=== PATIENT | male | born 1970 | race Caucasian/White ===

== ENCOUNTER 2019-05-08 23:40 | Inpatient (IN) | payer BC, OTHER ==
[~2019-05-08] VITALS: Ht 180.3 cm; Wt 89.3 kg
[2019-05-08] MEDS ORDERED: ONDANSETRON HCL 4 MG/2 ML VIAL ONE (23:55)
[2019-05-08] MEDS ORDERED: HYDROmorphone HCL 2 MG/ML VL ONE (23:55)
[2019-05-09] MEDS ORDERED: metroNIDAZOLE 500MG/100ML 100 ML IV ONE ×2
[2019-05-09] MEDS ORDERED: ONDANSETRON HCL 4 MG/2 ML VIAL IV ONE ×2 (00:05→02:45)
[2019-05-09] MEDS ORDERED: HYDROmorphone HCL 2 MG/ML VL IV ONE ×3 (00:05→02:45)
[2019-05-09] MEDS ORDERED: metroNIDAZOLE 500MG/100ML 200 ML IV ONE (01:35)
[2019-05-09] MEDS ORDERED: PIPERACILLIN-TAZOB 3.375GM 100 ML IV ONE ×2 (01:35→02:45)
[2019-05-09] MEDS ORDERED: SODIUM CHLORIDE 0.9% 1,000 ML IV ONE (02:45)
[2019-05-09 03:20] LABS: Basophils # (auto) 0.1 10 ^3/uL (0-0.2); Basophils % (auto) 0.6 % (0.0-2.0); Eosinophils # (auto) 0 10 ^3/uL (0-0.8); Hematocrit 44.2 % (41.0-53.0); Lymphocytes # (auto) 0.5 10 ^3/uL (0.4-5.4); Lymphocytes % (auto) 2.5 % (10.0-50.0); Mean Corpuscular Hemoglobin 32.1 pg (28.0-32.0); Mean Corpuscular Hgb Conc. 33.9 g/dL (32.0-36.0); Mean Corpuscular Volume 94.6 fL (80.0-100.0); Monocytes # (auto) 0.7 10 ^3/uL (0-1.3); Monocytes % (auto) 3.6 % (0.0-12.0); Neutrophils # (auto) 19.3 10 ^3/uL (1.6-8.6); Neutrophils % (auto) 93.3 % (37.0-80.0); Platelet Count (auto) 299 10^3/uL (140-450); Red Blood Cells 4.67 10^6/uL (4.5-5.90); Red Cell Distribution Width 13.7 % (11.8-14.3); White Blood Cell 20.7 10^3/uL (4.4-10.8)
[2019-05-09 03:35] LABS: INR 0.97 (0.9-1.15); Partial Thromboplastin Time 26.8 sec (23.64-32.05)
[2019-05-09 03:39] LABS: Albumin 3.6 g/dL (3.4-5.0); BUN/Creatinine Ratio 19.4; Potassium 3.7 mmol/L (3.5-5.1)
[2019-05-09 03:42] LABS: Bilirubin, Total 0.8 mg/dL (0.2-1.0); Total Protein 7.4 g/dL (6.4-8.2)
[2019-05-09] MEDS: SODIUM CHLORIDE 0.9% 1,000 ML IV SCH ×2 (04:20→16:20)
[2019-05-09 05:54] VITALS: BP 155/90
[2019-05-09] MEDS: metroNIDAZOLE 500MG/100ML 100 ML IV SCH ×3 (06:00→22:06)
[2019-05-09] MEDS: MORPHINE SULFATE 4 MG/ML SYR/VIAL IV PRN ×4 (06:15→20:18)
--- NOTE | 2019-05-09 08:05 | NUR ---
Opening Shift Note Assumed care of patient, awake and alert. No S/S of distress/SOB or pain. Instructed on POC and to call for assist PRN, will continue to monitor for changes Q1hr and PRN. NPO status maintained for possible surgical procedure today.
[2019-05-09] MEDS: PANTOPRAZOLE 40 MG/10 ML VIAL INJ IV SCH (09:06)
[2019-05-09] MEDS: cefTRIAXone 1GM/50ML D5W 50 ML IV SCH (09:06)
[2019-05-09 09:11] VITALS: BP 139/84
--- NOTE | 2019-05-09 10:15 | NUR ---
Pain Patient complained of pain to lower abdomen. Patient to sign consent forms before pain medication.
[2019-05-09] MEDS ORDERED: fentaNYL CITRATE 100 MCG/2 ML VL ONE (10:30)
[2019-05-09] MEDS ORDERED: SUCCINYLCHOLINE CHLORIDE 20 MG/ML 10ML VIAL IV ONE (10:30)
[2019-05-09] MEDS ORDERED: MIDAZOLAM HCL 1MG/1ML-2 ML VIAL ONE (10:30)
[2019-05-09] MEDS ORDERED: HYDROmorphone HCL 2 MG/ML VL ONE (10:30)
[2019-05-09] MEDS ORDERED: ROCURONIUM 10MG/ML 10ML VIAL IV ONE (10:30)
[2019-05-09] MEDS ORDERED: POVIDONE IODINE 10 % TOPICAL OINT 30GM TOP ONE (10:30)
[2019-05-09] MEDS ORDERED: ONDANSETRON HCL 4 MG/2 ML VIAL ONE (10:31)
[2019-05-09] MEDS ORDERED: PROPOFOL 10 MG/ML 20 ML IV ONE (10:31)
[2019-05-09] MEDS ORDERED: ETOMIDATE (2MG/ML) 20ML VIAL IV ONE (10:31)
--- NOTE | 2019-05-09 10:45 | NUR ---
Patient signed consent forms signed for laparoscopic possible open appendectomy.
--- NOTE | 2019-05-09 10:48 | NUR ---
Morphine 2mg administered for pain after surgical consent forms signed.
[2019-05-09] MEDS: ONDANSETRON HCL 4 MG/2 ML VIAL IV PRN ×3 (10:53→20:18)
--- NOTE | 2019-05-09 11:40 | NUR ---
Off Unit Patient off unit for surgical procedure.
[2019-05-09] MEDS ORDERED: METOCLOPRAMIDE HCL 5MG/ml INJ 2ml VIAL IV PRN (12:00)
[2019-05-09] MEDS ORDERED: KETOROLAC TROMETH 15 mg/ml 1ML VL IV ONE (12:00)
[2019-05-09] MEDS ORDERED: fentaNYL CITRATE 100 MCG/2 ML VL IV PRN (12:00)
[2019-05-09] MEDS ORDERED: HYDROmorphone HCL 2 MG/ML VL IV PRN (12:00)
[2019-05-09] MEDS ORDERED: MORPHINE SULFATE 4 MG/ML SYR/VIAL IV PRN (12:00)
[2019-05-09] MEDS ORDERED: ceFAZolin 1GM/50ML 50 ML IV ONE (12:06)
[2019-05-09] MEDS ORDERED: KETOROLAC TROMETH 60MG/2ML VIAL ONE (12:10)
[2019-05-09] MEDS ORDERED: NEOSTIGMINE 1 MG/ML INJ (10mg/10ML VIAL) ONE (12:10)
[2019-05-09] MEDS ORDERED: GLYCOPYRROLATE 0.2 MG/ML 1ML VIAL ONE (12:10)
--- NOTE | 2019-05-09 14:10 | NUR ---
On Unit Patient returned to unit after having procedure done. Patient is awake and alert to place, self, time and situation. Opsite soiled with Betadine otherwise dry and intact. ANTONELLA drain insitu with minimal serosanguineous drainage. Call light placed within reach, bed alarm on for safety. Urinal given at bedside and patient encouraged to call for assistance.
--- NOTE | 2019-05-09 14:15 | NUR ---
Password Patient refused to set up password at this time. Explained that we cannot provide information unless he has password set up. Patient will call and update spouse.
[2019-05-09 14:48] VITALS: BP 146/86
[2019-05-09 17:00] VITALS: BP 149/89
[2019-05-09 22:25] VITALS: BP 149/94
[2019-05-10] MEDS: ONDANSETRON HCL 4 MG/2 ML VIAL IV PRN ×4 (01:43→22:49)
[2019-05-10] MEDS: MORPHINE SULFATE 4 MG/ML SYR/VIAL IV PRN ×3 (01:45→10:12)
[2019-05-10] MEDS: SODIUM CHLORIDE 0.9% 1,000 ML IV SCH ×2 (05:06→14:18)
[2019-05-10 05:09] VITALS: BP 136/84
[2019-05-10] MEDS: metroNIDAZOLE 500MG/100ML 100 ML IV SCH ×3 (05:38→21:30)
[2019-05-10 06:04] LABS: Albumin 2.6 g/dL (3.4-5.0); BUN/Creatinine Ratio 14.3; Calcium 8.4 mg/dL (8.5-10.1); Potassium 3.5 mmol/L (3.5-5.1)
[2019-05-10 06:05] LABS: Basophils # (auto) 0 10 ^3/uL (0-0.2); Basophils % (auto) 0.1 % (0.0-2.0); Eosinophils # (auto) 0 10 ^3/uL (0-0.8); Eosinophils % (auto) 0.2 % (0.0-7.0); Hematocrit 38.3 % (41.0-53.0); Hemoglobin 12.8 g/dL (13.5-17.5); Lymphocytes # (auto) 1.2 10 ^3/uL (0.4-5.4); Lymphocytes % (auto) 9.9 % (10.0-50.0); Mean Corpuscular Hemoglobin 31.9 pg (28.0-32.0); Mean Corpuscular Hgb Conc. 33.4 g/dL (32.0-36.0); Mean Corpuscular Volume 95.3 fL (80.0-100.0); Monocytes # (auto) 0.6 10 ^3/uL (0-1.3); Monocytes % (auto) 4.7 % (0.0-12.0); Neutrophils # (auto) 10.4 10 ^3/uL (1.6-8.6); Neutrophils % (auto) 85.1 % (37.0-80.0); Platelet Count (auto) 234 10^3/uL (140-450); Red Blood Cells 4.02 10^6/uL (4.5-5.90); Red Cell Distribution Width 13.9 % (11.8-14.3); White Blood Cell 12.2 10^3/uL (4.4-10.8)
[2019-05-10 06:07] LABS: Bilirubin, Total 0.8 mg/dL (0.2-1.0); Total Protein 6.2 g/dL (6.4-8.2)
--- NOTE | 2019-05-10 07:10 | NUR ---
Opening Shift Note: Assumed care of patient, patient asleep at this time. No S/S of distress/SOB or pain. Bed in lowest locked position, side rails up x 2, call light within reach. Patient will be instructed on POC and to call for assist PRN, will continue to monitor for changes Q1hr and PRN.
[2019-05-10 09:04] VITALS: BP 131/92
[2019-05-10] MEDS: PANTOPRAZOLE 40 MG/10 ML VIAL INJ IV SCH (09:21)
[2019-05-10] MEDS: cefTRIAXone 1GM/50ML D5W 50 ML IV SCH (09:21)
--- NOTE | 2019-05-10 10:12 | NUR ---
PAIN Patient states pain level 9/10. Appropriate medications given.
--- NOTE | 2019-05-10 10:42 | NUR ---
PAIN REASSESSMENT Patient sleeping at this time. No S/S of pain noted. Will continue to monitor.
[2019-05-10 13:00] VITALS: BP 135/88
[2019-05-10] MEDS: HYDROcodone-ACET 10/325MG TAB PO PRN ×2 (16:33→22:49)
--- NOTE | 2019-05-10 16:33 | NUR ---
PAIN Patient states pain 07/22. Dr. Veliz contacted for appropriate pain medications. New orders received, read back and verified.
[2019-05-10 16:55] VITALS: BP 154/87
--- NOTE | 2019-05-10 17:34 | NUR ---
PAIN REASSESSMENT Patient states pain level 2/10. Per patient " I am comfortable." Will continue to monitor.
--- NOTE | 2019-05-10 18:00 | NUR ---
ANTONELLA DRAIN 45 mLs emptied from drain.
--- NOTE | 2019-05-10 19:04 | NUR ---
Closing note: Patient resting. No S/S of distress, SOB or pain at this time. Care endorsed to NOC RN.
--- NOTE | 2019-05-10 19:30 | NUR ---
OPENING NOTE REPORT RECEIVED FROM DAYSHIFT RN PATIENT IS A/OX4 RESTING COMFORTABLY IN BED. PATIENT DENIES ANY PAIN AT THIS TIME. INCISION SITES TO MEDIAL ABDOMEN WITH ANTONELLA DRAIN TO LEFT LOWER ABDOMEN. ABD BINDER IN PLACE FOR COMFORT. PATIENT ABLE TO APPROPRIATELY DEMONSTRATE INCENTIVE SPIROMETER USE. POC DISCUSSED AND ALL QUESTIONS ANSWERED, WILL MONITOR Q1H PRN THROUGHOUT SHIFT.
[2019-05-10 21:00] VITALS: BP 148/85
--- NOTE | 2019-05-10 21:46 | NUR ---
REPORT ENDORSED TO TARYN BARKLEY TO ASSUME CARE OF PATIENT PATIENT SLEEPING COMFORTABLY, NO S/S OF DISTRESS NOTED. CALL LIGHT WITHIN REACH.
[2019-05-11] MEDS: SODIUM CHLORIDE 0.9% 1,000 ML IV SCH ×2 (02:04→11:01)
[2019-05-11 04:30] VITALS: BP 144/93
[2019-05-11 05:17] LABS: Basophils # (auto) 0 10 ^3/uL (0-0.2); Basophils % (auto) 0.2 % (0.0-2.0); Eosinophils # (auto) 0 10 ^3/uL (0-0.8); Eosinophils % (auto) 0.2 % (0.0-7.0); Hematocrit 38.2 % (41.0-53.0); Hemoglobin 12.9 g/dL (13.5-17.5); Lymphocytes # (auto) 0.8 10 ^3/uL (0.4-5.4); Lymphocytes % (auto) 7.3 % (10.0-50.0); Mean Corpuscular Hemoglobin 32.2 pg (28.0-32.0); Mean Corpuscular Hgb Conc. 33.8 g/dL (32.0-36.0); Mean Corpuscular Volume 95.5 fL (80.0-100.0); Monocytes # (auto) 0.5 10 ^3/uL (0-1.3); Monocytes % (auto) 4.2 % (0.0-12.0); Neutrophils # (auto) 9.6 10 ^3/uL (1.6-8.6); Neutrophils % (auto) 88.1 % (37.0-80.0); Platelet Count (auto) 242 10^3/uL (140-450); Red Blood Cells 3.99 10^6/uL (4.5-5.90); Red Cell Distribution Width 13.5 % (11.8-14.3); White Blood Cell 10.9 10^3/uL (4.4-10.8)
[2019-05-11] MEDS: HYDROcodone-ACET 10/325MG TAB PO PRN ×2 (05:42→12:01)
[2019-05-11] MEDS: ONDANSETRON HCL 4 MG/2 ML VIAL IV PRN (05:42)
[2019-05-11] MEDS: metroNIDAZOLE 500MG/100ML 100 ML IV SCH ×2 (06:07→13:49)
--- NOTE | 2019-05-11 07:20 | NUR ---
Opening Shift Note: Assumed care of patient. Patient asleep at this time. No S/S of distress/SOB or pain. Bed in lowest locked position, side rails up x 2, call light within reach. Patient will instructed on POC and to call for assist PRN, will continue to monitor for changes Q1hr and PRN.
[2019-05-11 09:00] VITALS: BP 116/90
[2019-05-11] MEDS: cefTRIAXone 1GM/50ML D5W 50 ML IV SCH (09:22)
[2019-05-11] MEDS: PANTOPRAZOLE 40 MG/10 ML VIAL INJ IV SCH (09:22)
--- NOTE | 2019-05-11 10:58 | NUR ---
DR CAMPOS: Dr. Veliz at bedside. Discussed POC with patient, patient verbally agreed.
--- NOTE | 2019-05-11 12:01 | NUR ---
PAIN Patient states headache, 07/22. Appropriate medication given. Will continue to monitor.
--- NOTE | 2019-05-11 12:10 | NUR ---
Dr. Smith paged regarding pending D/C. Per Dr. Smith "Patient is good to go home, follow up with me in two weeks."
[2019-05-11 12:22] VITALS: BP 116/90
[2019-05-11 13:00] VITALS: BP 133/96
--- NOTE | 2019-05-11 13:01 | NUR ---
PAIN REASSESSMENT Patient states pain level 2/10. Per patient "I am comfortable." Will continue to monitor.
== END 2019-05-11 14:58 | disposition home or self-care (01) | DRG 854 ==
LOC: EDBD 23:40 → ER 23:45 → WEST WING 23:46
PROVIDERS: ADMIT Nurse Practitioner; ATTEND Family Medicine
PROC: 0DTJ4ZZ Resection of Appendix, Percutaneous Endoscopic Approach (ICD-10-PCS; principal; 2019-05-09 12:21)
DX: A41.9 Sepsis, unspecified organism (principal); K35.80 Unspecified acute appendicitis; E86.0 Dehydration; F12.90 Cannabis use, unspecified, uncomplicated; F41.9 Anxiety disorder, unspecified
CPT/HCPCS: 36415; 71045; 74176; 80053; 85025; 85610; 85730; 86850; 86900; 86901; 87040; 96361; 96365; 96367; 96375; C9113; G0378; J0330; J0690; J0696; J1885; J2250; J2405; J2543; J2704; J3490

== ENCOUNTER 2019-05-21 12:40 | Emergency (ER) | payer BC, OTHER ==
[~2019-05-21] VITALS: Ht 180.3 cm; Wt 82.6 kg
[2019-05-21 12:47] VITALS: BP 148/92
[2019-05-21] MEDS ORDERED: ACETAMINOPHEN 325 MG TAB PO ONE (13:30)
== END 2019-05-21 13:30 | disposition home or self-care (01) ==
LOC: ER 12:40
DX: Z46.2 Encounter for fitting and adjustment of other devices related to nervous system and special senses (principal); F17.210 Nicotine dependence, cigarettes, uncomplicated; F12.10 Cannabis abuse, uncomplicated; Z48.02 Encounter for removal of sutures